=== PATIENT | female | born 1965 | race Two or more races ===

== ENCOUNTER → 2020-07-02 | Day surgery (SDC) | payer OTHER ==
[2020-07-02] VITALS (8 sets, daily range): BP systolic 107–144; BP diastolic 54–81
[~2020-07-02] VITALS: Ht 162.6 cm; Wt 84.4 kg
[~2020-07-02] MED LIST: Atropine Sulfate 0.4mg/ml inj IVP PRN; DiphenhydrAMINE 50mg/ml Inj IVP PRN; IBUPROFEN600 M1 ORAL; Ketorolac 30mg Inj IV PRN; LORazepam Inj 2mg/ml 1ml IV PRN; LR 1000ml 1,000 ML IV SCH; LR 1000ml 1,000 ML IVLG SCH; Labetalol 5mg/ml 20ml vial IV PRN; Lidocaine 1% Plain 30 ml INJ ONE; Meperidine 25mg/1ml Inj (FOR RIGORS ONLY) IV PRN; Metoclopramide 10mg/2ml Inj IVP PRN; Midazolam 2mg/2ml Inj IVP PRN; Midazolam 2mg/2ml Inj ONE; VITAMIN C500 M9 PO; fentaNYL 100 mcg/2 mL IV PRN
--- NOTE | 2020-07-02 08:02 | Short Stay Surgery H&P ---
History of Present Illness History of Present Illness Chief Complaint GERDs and abdominal pains. HPI Kimmy Herman is a 54 year old male who was admitted on for GERDS/abdominal pains Patient History Allergies: Coded Allergies: CODEINE (Verified Allergy, Severe, rash, 07/02/20) Past Surgeries: (1) History of Medication History Scheduled Ascorbic Acid (Vitamin C), 500 MG PO DAILY, (Reported) Scheduled PRN Ibuprofen* (Motrin*), 600 MG ORAL Q6H PRN for FOR PAIN, (Reported) Review of Systems Cardiovascular: Reports: no symptoms Respiratory: Reports: no symptoms Skeletal: Reports: trauma Gastrointestinal: Reports: no symptoms, gastro esophageal reflux disease Genitourinary: Reports: no symptoms Neurologic: Reports: no symptoms Endocrine: Reports: no symptoms Hematologic: Reports: no symptoms Physical Exam Vital Signs Last Vital Signs Date Time Temp Pulse Resp B/P (MAP) Pulse Ox O2 Delivery O2 Flow Rate FiO2 07/02/20 07:55 Room Air 07/02/20 07:54 97.3 70 18 144/81 97 Skin: normal HENT: normal Heart: normal Lungs: normal Abdomen: abnormal Extremities: normal Genitourinary: normal Plan Plan of Care Upper GI endoscopy and biopsy. Preop Interventions None. Summary of Findings See the reports. Attestation Are the patient's medical conditions optimized for surgery? Attestation Response: yes Yumiko Sandoval MD Jul 02, 2020 08:02
--- NOTE | 2020-07-02 08:03 | Discharge Instructions ---
Discharge Instructions Discharge Instructions Follow up with: No need to follow up in the office. For Congestive Heart Failure Reminder Report to your physician any weight gain of 5 pounds or more in one week. Yumiko Sandoval MD Jul 02, 2020 08:03
--- NOTE | 2020-07-02 08:03 | Pre-Procedure Note/Attestation ---
Pre-Procedure Note/Attestation Complete Prior to Procedure Planned Procedure: left Procedure Narrative: Examination of the upper GI tract via endoscopy and obtaining biopsy. Indications for Procedure Pre-Operative Diagnosis: R/O Gastritis/esophagitis. Attestation I attest that I discussed the nature of the procedure; its benefits; risks and complications; and alternatives (and the risks and benefits of such alternatives), prior to the procedure, with the patient (or the patient's legal client care representative). I attest that, if there was a reasonable possibility of needing a blood transfusion, the patient (or the patient's legal client care representative) was given the [place] [employer] standardized written summary, pursuant to the Alexei Laurel Blood Safety Act ([place] Health and Safety Code # 1645, as amended). I attest that I re-evaluated the patient just prior to the surgery and that there has been no change in the patient's H&P, except as documented below: Yumiko Sandoval MD Jul 02, 2020 08:03
--- NOTE | 2020-07-02 08:38 | Immediate Post-Op Evaluation ---
Immediate Post-Op Evalulation Immediate Post-Op Evalulation Procedure: EGD Date of Evaluation: Jul 02, 2020 Time of Evaluation: 10:04 IV Fluids: 600 LR Blood Products: 0 Estimated Blood Loss: 2 Urinary Output: 0 Blood Pressure Systolic: 117 Blood Pressure Diastolic: 68 Pulse Rate: 70 Respiratory Rate: 16 O2 Sat by Pulse Oximetry: 100 Temperature (Fahrenheit): 98.8 Pain Score (1-10): 1 Nausea: No Vomiting: No Complications 0 Patient Status: awake, reacts, patent, none Hydration Status: adequate Manuel Burnham MD Jul 02, 2020 08:38
--- NOTE | 2020-07-02 08:38 | Anethesia Preoperative Eval ---
Anesthesia Pre-op PMH/ROS General Date of Evaluation: Jul 02, 2020 Time of Evaluation: 09:17 Anesthesiologist: Chacha ASA Score: ASA 3 Mallampati Score Class I : Soft palate, uvula, fauces, pillars visible Class II: Soft palate, uvula, fauces visible Class III: Soft palate, base of uvula visible Class IV: Only hard plate visible Mallampati Classification: Class II Surgeon: Lori Diagnosis: Abd Pain Surgical Procedure: EGD Anesthesia History: none Family History: no anesthesia problems Allergies: Coded Allergies: CODEINE (Verified Allergy, Severe, rash, 07/02/20) Medications: see eMAR Patient NPO?: Yes Past Medical History Cardiovascular: Reports: HTN Pulmonary: Reports: asthma Gastrointestinal/Genitourinary: Reports: GERD Other: obesity - BMI 33 PSxH Narrative: L Knee Arthroscopy Anesthesia Pre-op Phys. Exam Physician Exam Last Vital Signs Date Time Temp Pulse Resp B/P (MAP) Pulse Ox O2 Delivery O2 Flow Rate FiO2 07/02/20 07:55 Room Air 07/02/20 07:54 97.3 70 18 144/81 97 Constitutional: NAD Neurologic: CN 2-12 intact Cardiovascular: RRR Respiratory: CTA Gastrointestinal: S/NT/ND Airway Exam Mallampati Score: Class II MO: full ROM: full Teeth: missing, intact Anesthesia Pre-op A/P Risk Assessment & Plan Assessment: ASA 3 Plan: TIVA Status Change Before Surgery: No Manuel Burnham MD Jul 02, 2020 08:38
--- NOTE | 2020-07-02 08:39 | 48 Hour Post Anesthesia Eval ---
Post Anesthesia Evaluation Procedure: EGD Date of Evaluation: Jul 02, 2020 Time of Evaluation: 12:12 Blood Pressure Systolic: 139 0: 69 Pulse Rate: 66 Respiratory Rate: 18 Temperature (Fahrenheit): 98.6 O2 Sat by Pulse Oximetry: 100 Airway: patent Nausea: No Vomiting: No Pain Intensity: 1 Hydration Status: adequate Cardiopulmonary Status: Stable Mental Status/LOC: patient returned to baseline Follow-up Care/Observations: 0 Post-Anesthesia Complications: 0 Follow-up care needed: ready to discharge Manuel Burnham MD Jul 02, 2020 08:39
--- NOTE | 2020-07-02 09:42 | Endoscopy Procedure Note ---
Endoscopy Procedure Note General Indication for Procedure: GERDs and abdominal pains Procedures Performed: EGD - evidence of gastric polyposis. Two polyps removed from mid body and prepyloric area. The mid body polyps was 1 CM and pedunclulated Specimen: yes Pt Tolerated Procedure Well: Yes Estimated Blood Loss: none Anesthesia Anesthesiologist: Dr. Riggs Anesthesia: moderate sedation Medications Medication Given: see anesthesia record Inserted Devices Implant(s) used?: No Quality Quality of Bowel Preparation: Good Was there any complications?: No GI Core Measures 50 yrs or older w/o bx or poly: Not Applicable 10yrs. F/U recommended: Not Applicable If not recommended, why?: Med reason:<3 yrs.: System Reason:<3 yrs.: Yumiko Sandoval MD Jul 02, 2020 09:42
--- NOTE | 2020-07-02 10:59 | Operative Note - Dictated ---
DATE OF OPERATION: 07/02/2020 SURGEON: Yumiko Sandoval MD. PROCEDURE: Esophagogastroduodenoscopy with polypectomy and biopsy. PREOPERATIVE DIAGNOSIS: Abdominal pain, history of gastroesophageal acid reflux. POSTOPERATIVE DIAGNOSIS: Evidence of gastric polyposis. Two major polyps were removed with hot snare, one located in the midbody posterior wall of the stomach and size of 1 cm, pedunculated and the other one in the pre-pyloric area, size of 5 mm, also pedunculated. The gastric cavity seems to be completely normal. No evidence of gastritis noted. Random biopsy from gastric body obtained. MEDICATION USED: Per Dr. Burnham anesthesiologist. INSTRUMENT: GIF Olympus video upper GI endoscope. DESCRIPTION OF PROCEDURE: The patient after arriving endoscopy unit, was told about risks and benefits of the procedure, which he accepted and signed informed consent. He was then put on the left lateral decubitus position. After adequate IV sedation, the scope was gently passed through the cricopharyngeal area, was lodged into the upper esophagus and was gradually advanced towards gastroesophageal junction. The entire length of the esophagus was normal. GE junction also looked normal. No evidence of Simmons's or hiatal hernia. At this time, the scope was advanced into the stomach and the gastric cavity was distended with insufflation of air. Immediately, it was seen that there was rather a large pedunculated polyp located over the midbody posterior wall greater curvature side of the stomach. It looked benign however it was multilobulated and it was grabbed with a snare cautery forceps and totally coagulated and removed and the polypectomy did not reveal major bleeding either. At this time, the scope was gradually advanced towards the rest of the stomach into the antrum where there was another approximately 4 to 5 mm polypoid lesion seen in the pre-pyloric section at the level of 2 o'clock. This was again grabbed with a snare cautery forceps and totally removed with hot snare and all the specimen was sent to the pathology lab. The rest of the stomach looked normal and there was no any evidence of gastritis or ulcers, etc. Subsequently, the scope was passed through the pylorus. First and second portion of duodenum were examined that they looked completely normal. At this time, the scope was pulled out and the procedure was terminated. The patient tolerated the procedure well and left the endoscopy room in a good condition. Said Prerna Sandoval DR: MELIA JOB#: [id number] CC:
== END | disposition home or self-care (01) ==
LOC: GAS 07:40 → EDSEX 07:40
DX: K31.7 Polyp of stomach and duodenum (principal); K21.9 Gastro-esophageal reflux disease without esophagitis; I10 Essential (primary) hypertension; E66.9 Obesity, unspecified; Z88.6 Allergy status to analgesic agent; Z68.31 Body mass index [BMI] 31.0-31.9, adult
CPT/HCPCS: 43251; 94003; J2001; J2250; J2704; J7120; U0004; 94150